=== PATIENT | male | born 1980 | race Caucasian/White ===

== ENCOUNTER 2022-10-05 23:49 | Emergency (ER) | payer BC ==
[2022-10-06 00:06] VITALS: BP_SYST 178
--- NOTE | 2022-10-06 00:10 | NUR ---
Patient triaged and placed in waiting room. VSS and patient appears in no acute distress at this time. Accompanied by self, awaiting available bed, and MD notified of need for MSE. ekg done
[2022-10-06 01:06] LABS: BASOPHILS % (AUTO) 0.5 % (0.0-2.0); EOSINOPHILS # (AUTO) 0.1 K/uL (0.0-0.4); EOSINOPHILS % (AUTO) 2.4 % (0.0-4.0); HEMATOCRIT 40.9 % (36-54); HEMOGLOBIN 14.4 g/dL (14.0-18.0); LYMPHOCYTES # (AUTO) 2.1 K/uL (1.0-5.5); LYMPHOCYTES % (AUTO) 39.2 % (20.5-51.5); MEAN CORPUSCULAR HEMOGLOBIN 32 pg (27-31); MEAN CORPUSCULAR HGB CONC 35 % (32-36); MEAN CORPUSCULAR VOLUME 90 fL (79.0-98.0); MONOCYTES # (AUTO) 0.5 K/uL (0.0-1.0); MONOCYTES % (AUTO) 8.9 % (1.7-9.3); NEUTROPHILS # (AUTO) 2.6 K/uL (1.8-7.7); PLATELET COUNT (AUTO) 205 K/uL (130-430); RED BLOOD CELL COUNT(AUTO) 4.56 MIL/uL (4.2-6.2); RED CELL DISTRIBUTION WIDTH 13.3 % (9.0-15.0); WHITE BLOOD COUNT (AUTO) 5.4 K/uL (4.8-10.8)
[2022-10-06 01:32] LABS: ALANINE AMINOTRANSFERASE 83 U/L (12-78); ALBUMIN 3.8 g/dL (3.4-4.8); ANION GAP 11 (5-15); ASPARTATE AMINOTRANSFERASE 35 U/L (10-37); CALCIUM 8.8 mg/dL (8.4-11.0); CHLORIDE 101 mmol/L (98-107); CREATININE 1.19 mg/dL (0.55-1.30); GFR AFRICAN AMERICAN 86 mL/min (>90); GLUCOSE 126 mg/dL (70-99); TOTAL BILIRUBIN 0.6 mg/dL (0.0-1.0); UREA NITROGEN, BLOOD 15 mg/dL (8-21)
--- NOTE | 2022-10-06 02:00 | NUR ---
PT RESTING QUIETLY WITH NO SIGNS OF DISTRESS
[2022-10-06] MEDS: FAMOTIDINE 20 MG TABLET PO ONE (02:04)
[2022-10-06] MEDS: MAG-AL HYDROX/SIMETH 30 ML UDC PO ONE (02:06)
[2022-10-06] MEDS ORDERED: FAMO40TA71 PO (03:01)
[2022-10-06] MEDS ORDERED: SUCR1TAB2 PO (03:01)
[2022-10-06 03:04] VITALS: BP_SYST 126
--- NOTE | 2022-10-06 03:20 | NUR ---
Patient given written and verbal discharge instructions and verbalizes understanding. ER MD LINO discussed with patient the results and treatment provided. Patient in stable condition. ID arm band removed. Rx of PEPCID AND CARAFATE given. Patient educated on pain management and to follow up with PMD. Pain Scale 2. Opportunity for questions provided and answered. Medication side effect fact sheet provided.
== END 2022-10-06 03:22 | disposition home or self-care (01) ==
LOC: SED 23:49
DX: R07.89 Other chest pain (principal); R10.13 Epigastric pain; E78.5 Hyperlipidemia, unspecified; I10 Essential (primary) hypertension; Z79.899 Other long term (current) drug therapy
CPT/HCPCS: 36415; 71045; 80053; 84484; 85025; 99284

== ENCOUNTER 2023-09-21 20:34 | Emergency (ER) | payer BC ==
[~2023-09-21] VITALS: Ht 177.8 cm; Wt 86.2 kg
[~2023-09-21 20:34] MED LIST: FAMO40TA71 PO; SUCR1TAB2 PO
[2023-09-21 20:52] VITALS: BP_SYST 131; PULSE 83; RESP 20; TEMP 97.8; O2SAT 98
[2023-09-21 22:17] LABS: LYMPHOCYTES # (AUTO) 0.8 K/uL (1.0-5.5); MONOCYTES # (AUTO) 0.3 K/uL (0.0-1.0); NEUTROPHILS # (AUTO) 2.6 K/uL (1.8-7.7)
[2023-09-21 22:31] LABS: BASOPHILS % (AUTO) 0.3 % (0.0-2.0); EOSINOPHILS % (AUTO) 0.1 % (0.0-4.0); HEMOGLOBIN 14.5 g/dL (14.0-18.0); LYMPHOCYTES % (AUTO) 22.5 % (20.5-51.5); MEAN CORPUSCULAR HEMOGLOBIN 31 pg (27-31); MEAN CORPUSCULAR HGB CONC 35 % (32-36); MEAN CORPUSCULAR VOLUME 88 fL (79.0-98.0); MONOCYTES % (AUTO) 8.8 % (1.7-9.3); NEUTROPHILS % (AUTO) 68.3 % (40.0-70.0); RED BLOOD CELL COUNT(AUTO) 4.64 MIL/uL (4.2-6.2); RED CELL DISTRIBUTION WIDTH 13.3 % (9.0-15.0); WHITE BLOOD COUNT (AUTO) 3.8 K/uL (4.8-10.8)
[2023-09-21 22:35] LABS: PLATELET COUNT (AUTO) 98 K/uL (130-430)
[2023-09-21 22:38] LABS: CALCIUM 8.5 mg/dL (8.4-11.0); CREATININE 1.39 mg/dL (0.55-1.30); POTASSIUM 4.1 mmol/L (3.5-5.1)
[2023-09-21] MEDS: cefTRIAXone 1 GM VIAL IM ONE (23:34)
[2023-09-21 23:40] VITALS: BP_SYST 126; PULSE 68; RESP 18; TEMP 97.8; O2SAT 100
== END 2023-09-21 23:40 | disposition home or self-care (01) ==
LOC: SED 20:34
DX: J20.9 Acute bronchitis, unspecified (principal); R05.9 Cough, unspecified; R50.9 Fever, unspecified; Z79.899 Other long term (current) drug therapy
CPT/HCPCS: 99283; 80048; 85025; 36415; 96372; J0696

== ENCOUNTER 2024-04-17 16:47 | Emergency (ER) | payer BC ==
[~2024-04-17] VITALS: Ht 177.8 cm; Wt 82.1 kg
[2024-04-17 17:00] VITALS: BP_SYST 136; PULSE 81; RESP 18; TEMP 97.9; O2SAT 98
[2024-04-17 20:18] LABS: EOSINOPHILS # (AUTO) 0.1 K/uL (0.0-0.4); EOSINOPHILS % (AUTO) 1.3 % (0.0-4.0); LYMPHOCYTES # (AUTO) 1.7 K/uL (1.0-5.5); WHITE BLOOD COUNT (AUTO) 5.1 K/uL (4.8-10.8)
[2024-04-17 20:33] LABS: ALBUMIN 3.7 g/dL (3.4-4.8); BILIRUBIN,DIRECT 0.1 mg/dL (0.0-0.3); CALCIUM 8.9 mg/dL (8.4-11.0); CREATININE 1.16 mg/dL (0.55-1.30); POTASSIUM 3.9 mmol/L (3.5-5.1); TOTAL BILIRUBIN 0.6 mg/dL (0.0-1.0); TOTAL PROTEIN, SERUM 6.9 g/dL (6.4-8.3)
[2024-04-17] MEDS: NACL 0.9% 2,000 ML IV ONE (20:33)
[2024-04-17] MEDS: KETOROLAC TROMETHAMINE 30 MG VIAL IVP ONE (20:41)
[2024-04-17] MEDS: PANTOPRAZOLE SODIUM 40 MG/VIAL (PROTONIX) IVP ONE (20:41)
[2024-04-17] MEDS: ONDANSETRON HCL 4 MG/2 ML VIAL IVP ONE (20:42)
[2024-04-17 21:10] LABS: BASOPHILS # (AUTO) 0.1 K/uL (0.0-0.2); BASOPHILS % (AUTO) 1.5 % (0.0-2.0); HEMATOCRIT 38.2 % (36-54); HEMOGLOBIN 13.8 g/dL (14.0-18.0); LYMPHOCYTES % (AUTO) 32.8 % (20.5-51.5); MEAN CORPUSCULAR HEMOGLOBIN 33 pg (27-31); MEAN CORPUSCULAR HGB CONC 36 % (32-36); MEAN CORPUSCULAR VOLUME 90 fL (79.0-98.0); MONOCYTES # (AUTO) 0.6 K/uL (0.0-1.0); MONOCYTES % (AUTO) 11.5 % (1.7-9.3); NEUTROPHILS # (AUTO) 2.7 K/uL (1.8-7.7); NEUTROPHILS % (AUTO) 52.9 % (40.0-70.0); PLATELET COUNT (AUTO) 180 K/uL (130-430); RED BLOOD CELL COUNT(AUTO) 4.26 MIL/uL (4.2-6.2)
[2024-04-17] MEDS ORDERED: IMO2 PO (21:39)
[2024-04-17] MEDS ORDERED: ONDA-8 TL (21:39)
[2024-04-17] MEDS ORDERED: IBUP-1969 PO (21:39)
== END 2024-04-17 22:16 | disposition home or self-care (01) ==
LOC: SED 16:47
DX: A05.9 Bacterial foodborne intoxication, unspecified (principal); R11.0 Nausea; Z79.899 Other long term (current) drug therapy
CPT/HCPCS: 99284; 96374; 96375; 96361; 80076; 80048; 83690; 85025; 36415; J1885; J2405; J2470; J7030